=== PATIENT | male | born 1945 | race Caucasian/White ===

== ENCOUNTER 2025-05-19 09:16 | Emergency (ER) | payer MEDICARE ==
[~2025-05-19] VITALS: Ht 180.3 cm; Wt 61.4 kg
[2025-05-19 09:30] VITALS: BP 100/67; PULSE 91; RESP 18; TEMP 97.2; O2SAT 96
[2025-05-19] MEDS ORDERED: METF-1211 PO (09:35)
[2025-05-19] MEDS ORDERED: DULA0.75 SQ (09:35)
[2025-05-19] MEDS ORDERED: AMOX-457 PO (09:52)
[2025-05-19] MEDS ORDERED: ACET-2247 PO (09:52)
[2025-05-19] MEDS: AMOX TR/POT CLAV 875 MG/125 MG TABLET PO ONE (09:55)
[2025-05-19] MEDS: ACETAMINOPHEN 500 MG TABLET PO ONE (09:56)
== END 2025-05-19 10:02 | disposition home or self-care (01) ==
LOC: EMS 09:26
DX: K02.9 Dental caries, unspecified (principal); K08.89 Other specified disorders of teeth and supporting structures; E11.9 Type 2 diabetes mellitus without complications; R60.0 Localized edema; F17.210 Nicotine dependence, cigarettes, uncomplicated; Z79.899 Other long term (current) drug therapy
CPT/HCPCS: 82962; 99283